=== PATIENT | male | born 1945 | race African-American/Black ===

== ENCOUNTER 2019-10-27 08:57 | Emergency (ER) | payer OTHER ==
[~2019-10-27] VITALS: Ht 172.7 cm; Wt 63.5 kg
[2019-10-27] MEDS ORDERED: PROMETH-CODEIN 65 ML PO (13:21)
== END 2019-10-27 13:42 | disposition home or self-care (01) ==
LOC: ER 08:57
DX: B34.9 Viral infection, unspecified (principal); J44.1 Chronic obstructive pulmonary disease with (acute) exacerbation